=== PATIENT | female | born 1960 | race Caucasian/White ===

== ENCOUNTER 2018-05-25 10:13 | Inpatient (IN) | payer MEDICARE, OTHER ==
[~2018-05-25] VITALS: Ht 160 cm; Wt 123.2 kg
[~2018-05-25 10:13] MED LIST: ALBU90OI; ALBU90OI6; ALBU90OI6 INH; ALBU90OI61 INH; ALPR1 PO; AMIT50; ASPI81EC; Antivert25 MG PO; BACLOFEN; Bactrim Ds Tab1 EACH PO; CLIN300 PO; CLONAZEPAM; CYMBALTA; Calcium 500 MG1 EACH PO; Cipro500 MG PO; Cleocin HCl300 MG PO; DOXE2.5 PO; DOXE50 PO; DULERA 200 MCG/13 GM INH; DULO60 PO; ESTRTP PV; FLUSAL2505; FLUSAL5005 IH; FLUT.05NI; FURO40 PO; GREEN TEA; HYDACE10B; HYDACE5 PO; HYDCHL25; IBUP800; IBUP800 PO; LEVSOD100; LEVSOD100 PO; LEVSOD125 PO; LEVSOD137 PO; LEVSOD150; LEVSOD175 PO; LORA1; LORA1 PO; LORA2; Lopressor 25 mg25 MG PO; Lyrica150 MG PO; MELO7.5; MELO7.5 PO; METF500C PO; METO50 PO; METO50ER; MONT10T; MONT10T PO; MORP15ER PO; MORP30ER PO; MULVITMIND; NAPR550 PO; NITR.4SL; NITR.4SL SL; NITRSPRAY SL; Norco 5-325 Ta1 EACH PO; OMEP20ER PO; OXYACE5T PO; OXYB5; OXYB5 PO; OXYC5; OXYC5 PO; PANT40; PANT40 PO; POTA10T; POTA10T PO; POTCHL10ER PO; PREG200 PO; PREG300 PO; PREG75; PRILOSEC; PROG100 PO; PROM25 PO; QUET200; QUET25; RANI150; RXHYDACE PO; RXNAPNA550 PO; SINGULAIR; SULTRIDS PO; TOLT4; TOPI25 PO; TRAM50 PO; VALS80 PO; VENL75 PO; VENL75ER PO; WALKING BOOT; ZOLP5; ZOLP5 PO; [UNRECOGNIZED DRUG - REMARK]; [UNRECOGNIZED DRUG - REMARK]
[2018-05-25 11:39] LABS: BASOPHILS ABSOLUTE AUTO 0.09 K/mm3 (0.00-0.23); BASOPHILS PERCENT AUTO 1 % (0-2); EOSINOPHILS ABSOLUTE AUTO 0.66 K/mm3 (0.00-0.68); EOSINOPHILS PERCENT AUTO 5 % (0-6); Hematocrit 36.8 % (33.0-51.0); Hemoglobin 11.7 g/dL (11.5-16.0); IMMATURE GRAN ABSOLUTE AUTO 0.06 K/mm3 (0.00-0.10); IMMATURE GRAN PERCENT AUTO 0 % (0-1); LYMPHOCYTES ABSOLUTE AUTO 2.38 K/mm3 (0.84-5.20); LYMPHOCYTES PERCENT AUTO 17 % (21-46); MONOCYTES ABSOLUTE AUTO 1.36 K/mm3 (0.16-1.47); MONOCYTES PERCENT AUTO 10 % (4-13); Mean Corpuscular HGB 28.4 pg (26.0-34.0); Mean Corpuscular HGB Conc 31.8 g/dL (31.5-36.5); Mean Corpuscular Volume 89 fL (80-100); NEUTROPHILS ABSOLUTE AUTO 9.62 K/mm3 (1.96-9.15); NEUTROPHILS PERCENT AUTO 68 % (41-73); Platelet Count 256 K/mm3 (150-400); RDW Coefficient Variation 13.7 % (11.7-14.2); RDW Standard Deviation 45.1 fL (35.1-46.3); Red Blood Cell Count 4.12 M/mm3 (3.80-5.20); White Blood Cell Count 14.17 K/mm3 (4.00-11.30)
[2018-05-25 11:49] LABS: International Normalized Ratio 0.98; Prothrombin Time Results 10.1 Sec (9.7-11.5)
[2018-05-25 11:57] LABS: Ethanol (Alcohol), Blood, Med <3 mg/dL
[2018-05-25 12:02] LABS: Alanine Aminotransfer (ALT/SGP 20 U/L (12-78); Albumin/Globulin Ratio 0.7 (0.8-1.8); Alk Phos 151 U/L (50-136); Anion Gap 9 mmol/L (6-16); Aspartate Aminotrans (AST/SGOT 24 U/L (12-37); Bilirubin, Total 0.7 mg/dL (0.1-1.0); Blood Urea Nitrogen 41 mg/dL (8-24); Bun/Creatinine Ratio 8.5 (12.0-20.0); CO2, Blood 24 mmol/L (21-32); Calcium, Blood 8.4 mg/dL (8.5-10.1); Chloride, Blood 107 mmol/L (98-108); Creatinine, Blood 4.82 mg/dL (0.40-1.00); Globulin, Blood 4.2 g/dL (2.2-4.0); Glomerular Filtration Rate 10 (60-); Glucose, Blood 102 mg/dL (70-99); Potassium, Blood 3.9 mmol/L (3.5-5.5); Sodium, Blood 140 mmol/L (136-145); Total Protein, Blood 7.2 g/dL (6.4-8.2)
[2018-05-25 13:08] LABS: Creatine Kinase MB 2.9 ng/mL (0.0-3.6); Creatine Kinase MB Index 1.1 (0.0-4.0)
[2018-05-25 13:38] LABS: Free Thyroxine 1.46 ng/dL (0.70-1.60)
[2018-05-25 13:40] LABS: Triiodothyronine, Free 1.12 pg/mL (2.18-3.98)
[2018-05-25 14:05] LABS: U Amphetamine Screen Not Detected; U Barbituate Screen Not Detected; U Benzodiazapine Screen Not Detected; U Buprenorphine Screen Not Detected; U Cannabinoids Screen Not Detected; U Cocaine Screen Not Detected; U Methadone Screen Not Detected; U Methamphetamine Screen Not Detected; U Opiates Screen DETECTED; U Oxycodone Screen Not Detected; U Phencyclidine Screen Not Detected; U Propoxyphene Screen Not Detected
[2018-05-25] MEDS ORDERED: BACL10 PO (16:18)
[2018-05-25] MEDS ORDERED: Prozac40 MG PO (16:23)
[2018-05-25] MEDS ORDERED: Ultram50 MG PO (16:23)
[2018-05-25] MEDS ORDERED: HYDR1TAB94 PO (16:25)
[2018-05-25] MEDS ORDERED: ACYC400 PO (16:26)
[2018-05-25] MEDS ORDERED: Diclofenac Sodi50 MG PO (16:27)
[2018-05-25] MEDS ORDERED: Loratadine10 MG PO (16:31)
[2018-05-25] MEDS ORDERED: MONT10T PO (16:31)
[2018-05-25] MEDS ORDERED: HECTOROL PO (16:33)
[2018-05-25] MEDS ORDERED: BUME2 PO (16:38)
[2018-05-25] MEDS ORDERED: Doxepin HCl100 MG PO (16:43)
[2018-05-25] MEDS ORDERED: FISH OIL 1,2001 EAC4 PO (16:44)
[2018-05-25] MEDS ORDERED: VITAMIN D-32000 UNIT PO (16:45)
[2018-05-25] MEDS ORDERED: ATOR10 PO (16:45)
[2018-05-25] MEDS ORDERED: Omeprazole20 M1 PO (16:46)
[2018-05-25 19:44] LABS: Source, Urine Clean Catch
[2018-05-25 19:50] LABS: Appearance, Urine Hazy (Clear); Bilirubin, Urine Neg (Neg); Blood, Urine 2+ (Neg); Color, Urine Yellow (P-Yellow); Glucose Qualitative, Urine Neg (Neg); Ketones, Urine Neg (Neg); Leukocyte Esterase, Urine 3+ (Neg); Nitrite, Urine Neg (Neg); Protein, Urine 1+ (Neg); Specific Gravity, Urine 1.015 (1.003-1.022); Urobilinogen, Urine NORM (Normal)
[2018-05-25 20:06] LABS: Bacteria Many /hpf; Squamous Epithelial Cells Few /hpf (Few); White Blood Cells, Urine 50-100 /hpf (0-5)
[2018-05-26 05:30] LABS: BASOPHILS ABSOLUTE AUTO 0.07 K/mm3 (0.00-0.23); BASOPHILS PERCENT AUTO 1 % (0-2); EOSINOPHILS ABSOLUTE AUTO 0.48 K/mm3 (0.00-0.68); EOSINOPHILS PERCENT AUTO 5 % (0-6); Hematocrit 31.8 % (33.0-51.0); Hemoglobin 10.2 g/dL (11.5-16.0); IMMATURE GRAN ABSOLUTE AUTO 0.04 K/mm3 (0.00-0.10); IMMATURE GRAN PERCENT AUTO 0 % (0-1); LYMPHOCYTES ABSOLUTE AUTO 2.21 K/mm3 (0.84-5.20); LYMPHOCYTES PERCENT AUTO 22 % (21-46); MONOCYTES ABSOLUTE AUTO 1.19 K/mm3 (0.16-1.47); MONOCYTES PERCENT AUTO 12 % (4-13); Mean Corpuscular HGB 27.9 pg (26.0-34.0); Mean Corpuscular HGB Conc 32.1 g/dL (31.5-36.5); Mean Corpuscular Volume 87 fL (80-100); Mean Platelet Volume 11.9 fL (9.1-12.4); NEUTROPHILS ABSOLUTE AUTO 5.92 K/mm3 (1.96-9.15); NEUTROPHILS PERCENT AUTO 60 % (41-73); Platelet Count 219 K/mm3 (150-400); RDW Coefficient Variation 13.5 % (11.7-14.2); RDW Standard Deviation 43.1 fL (35.1-46.3); Red Blood Cell Count 3.65 M/mm3 (3.80-5.20); White Blood Cell Count 9.91 K/mm3 (4.00-11.30)
[2018-05-26 06:01] LABS: Bun/Creatinine Ratio 13.1 (12.0-20.0); Calcium, Blood 7.9 mg/dL (8.5-10.1); Creatinine, Blood 3.06 mg/dL (0.40-1.00); Potassium, Blood 3.8 mmol/L (3.5-5.5)
[2018-05-27 05:33] LABS: BASOPHILS ABSOLUTE AUTO 0.07 K/mm3 (0.00-0.23); BASOPHILS PERCENT AUTO 1 % (0-2); EOSINOPHILS ABSOLUTE AUTO 0.36 K/mm3 (0.00-0.68); EOSINOPHILS PERCENT AUTO 4 % (0-6); Hematocrit 33.2 % (33.0-51.0); Hemoglobin 10.4 g/dL (11.5-16.0); IMMATURE GRAN ABSOLUTE AUTO 0.03 K/mm3 (0.00-0.10); IMMATURE GRAN PERCENT AUTO 0 % (0-1); LYMPHOCYTES PERCENT AUTO 26 % (21-46); MONOCYTES ABSOLUTE AUTO 0.91 K/mm3 (0.16-1.47); MONOCYTES PERCENT AUTO 10 % (4-13); Mean Corpuscular HGB 28.1 pg (26.0-34.0); Mean Corpuscular HGB Conc 31.3 g/dL (31.5-36.5); Mean Platelet Volume 11.4 fL (9.1-12.4); NEUTROPHILS ABSOLUTE AUTO 5.29 K/mm3 (1.96-9.15); NEUTROPHILS PERCENT AUTO 59 % (41-73); Platelet Count 244 K/mm3 (150-400); RDW Coefficient Variation 13.4 % (11.7-14.2); RDW Standard Deviation 44.5 fL (35.1-46.3); White Blood Cell Count 8.96 K/mm3 (4.00-11.30)
[2018-05-27 05:44] LABS: Mean Corpuscular Volume 90 fL (80-100)
[2018-05-27 05:52] LABS: Albumin, Blood 2.4 g/dL (3.4-5.0); Anion Gap 9 mmol/L (6-16); Blood Urea Nitrogen 26 mg/dL (8-24); Bun/Creatinine Ratio 14.5 (12.0-20.0); CO2, Blood 21 mmol/L (21-32); Calcium, Blood 8.3 mg/dL (8.5-10.1); Chloride, Blood 115 mmol/L (98-108); Creatinine, Blood 1.79 mg/dL (0.40-1.00); Glomerular Filtration Rate 31 (60-); Glucose, Blood 111 mg/dL (70-99); Magnesium, Blood 1.8 mg/dL (1.6-2.4); Phosphorus, Blood 3.5 mg/dL (2.5-4.9); Sodium, Blood 145 mmol/L (136-145)
[2018-05-27] MEDS ORDERED: DOXERCALCIFER0.5 MCG PO (11:16)
== END 2018-05-27 14:21 | disposition home or self-care (01) | DRG 682 ==
LOC: ER 10:13 → MEDS 12:48 → ENPENDDIS 05-27 09:21 → MEDS 05-27 14:21
PROVIDERS: Family Medicine; Physician Assistant
DX: N17.9 Acute kidney failure, unspecified (principal); G92 Toxic encephalopathy; G91.9 Hydrocephalus, unspecified; N39.0 Urinary tract infection, site not specified; E78.5 Hyperlipidemia, unspecified; E11.40 Type 2 diabetes mellitus with diabetic neuropathy, unspecified; M79.7 Fibromyalgia; F32.9 Major depressive disorder, single episode, unspecified; F41.9 Anxiety disorder, unspecified; J45.909 Unspecified asthma, uncomplicated; E03.9 Hypothyroidism, unspecified; K21.9 Gastro-esophageal reflux disease without esophagitis; E11.22 Type 2 diabetes mellitus with diabetic chronic kidney disease; D63.1 Anemia in chronic kidney disease; E86.9 Volume depletion, unspecified; N18.3 Chronic kidney disease, stage 3 (moderate); R25.1 Tremor, unspecified; I95.9 Hypotension, unspecified; N25.81 Secondary hyperparathyroidism of renal origin; R80.9 Proteinuria, unspecified; R31.29 Other microscopic hematuria; Z66 Do not resuscitate; Z88.5 Allergy status to narcotic agent; Z88.0 Allergy status to penicillin; Z88.8 Allergy status to other drugs, medicaments and biological substances; Z91.040 Latex allergy status
CPT/HCPCS: 36415; 70450; 71046; 76770; 80048; 80053; 80069; 81001; 82140; 82550; 82553; 82947; 83735; 84439; 84443; 84481; 85025; 85610; 87077; 87086; 87186; 93005; 93010; 94640; 94760; 96360; 96361; 97110; 97161; 99285-25; G0480; G8978; G8979; J1956; J7030

== ENCOUNTER → 2018-12-07 | Outpatient (CLI) | payer MEDICARE, OTHER ==
[~2018-12-07] MED LIST changes: +ACYC400 PO; +ATOR10 PO; +BACL10 PO; +BUME2 PO; +DOXERCALCIFER0.5 MCG PO; +Diclofenac Sodi50 MG PO; +Doxepin HCl100 MG PO; +FISH OIL 1,2001 EAC4 PO; +HECTOROL PO; +HYDR1TAB94 PO; +Loratadine10 MG PO; +Omeprazole20 M1 PO; +Prozac40 MG PO; +Ultram50 MG PO; +VITAMIN D-32000 UNIT PO
[2018-12-07 17:33] LABS: Source, Urine Voided
[2018-12-07 17:54] LABS: Appearance, Urine Hazy (Clear); Bilirubin, Urine Neg (Neg); Blood, Urine Neg (Neg); Color, Urine Yellow (P-Yellow); Glucose Qualitative, Urine Neg (Neg); Ketones, Urine Neg (Neg); Leukocyte Esterase, Urine Neg (Neg); Nitrite, Urine Neg (Neg); Protein, Urine Neg (Neg); Urobilinogen, Urine NORM (Normal)
[2018-12-07 18:40] LABS: Bacteria Rare /hpf; Red Blood Cells, Urine Not Seen /hpf (0-2); Squamous Epithelial Cells Few /hpf (Few); White Blood Cells, Urine Not Seen /hpf (0-5)
[2018-12-07 18:41] LABS: Amorphous Light (0-Heavy)
== END | disposition home or self-care (01) ==
LOC: LAB SHORT 17:32 → LAB 17:32
PROVIDERS: Internal Medicine Nephrology
DX: N39.0 Urinary tract infection, site not specified (principal)
CPT/HCPCS: 81001; 87086

== ENCOUNTER 2019-03-11 13:14 | Emergency (ER) | payer MEDICARE, OTHER ==
[~2019-03-11] VITALS: Ht 160 cm; Wt 120.2 kg
[2019-03-11 14:28] LABS: BASOPHILS PERCENT AUTO 1 % (0-2); EOSINOPHILS ABSOLUTE AUTO 0.37 K/mm3 (0.00-0.68); EOSINOPHILS PERCENT AUTO 3 % (0-6); Hematocrit 40.9 % (33.0-51.0); Hemoglobin 12.8 g/dL (11.5-16.0); IMMATURE GRAN ABSOLUTE AUTO 0.08 K/mm3 (0.00-0.10); IMMATURE GRAN PERCENT AUTO 1 % (0-1); LYMPHOCYTES ABSOLUTE AUTO 2.18 K/mm3 (0.84-5.20); LYMPHOCYTES PERCENT AUTO 17 % (21-46); MONOCYTES ABSOLUTE AUTO 0.92 K/mm3 (0.16-1.47); MONOCYTES PERCENT AUTO 7 % (4-13); Mean Corpuscular HGB 28.1 pg (26.0-34.0); Mean Corpuscular HGB Conc 31.3 g/dL (31.5-36.5); Mean Corpuscular Volume 90 fL (80-100); Mean Platelet Volume 10.7 fL (9.1-12.4); NEUTROPHILS ABSOLUTE AUTO 8.97 K/mm3 (1.96-9.15); NEUTROPHILS PERCENT AUTO 71 % (41-73); Platelet Count 280 K/mm3 (150-400); RDW Coefficient Variation 14.6 % (11.7-14.2); RDW Standard Deviation 48.3 fL (35.1-46.3); Red Blood Cell Count 4.56 M/mm3 (3.80-5.20); White Blood Cell Count 12.62 K/mm3 (4.00-11.30)
[2019-03-11 14:38] LABS: International Normalized Ratio 0.98; Prothrombin Time Results 10.4 Sec (9.7-11.5)
[2019-03-11 15:00] LABS: Albumin, Blood 3.4 g/dL (3.4-5.0); Albumin/Globulin Ratio 0.8 (0.8-1.8); Bilirubin, Total 0.4 mg/dL (0.1-1.0); Bun/Creatinine Ratio 12.7 (12.0-20.0); Calcium, Blood 8.5 mg/dL (8.5-10.1); Creatinine, Blood 1.34 mg/dL (0.40-1.00); Globulin, Blood 4.1 g/dL (2.2-4.0); Potassium, Blood 3.5 mmol/L (3.5-5.5); Total Protein, Blood 7.5 g/dL (6.4-8.2)
[2019-03-11 15:43] LABS: Source, Urine Clean Catch
[2019-03-11 15:47] LABS: Appearance, Urine Clear (Clear); Bilirubin, Urine Neg (Neg); Blood, Urine Neg (Neg); Color, Urine Yellow (P-Yellow); Glucose Qualitative, Urine Neg (Neg); Ketones, Urine Neg (Neg); Leukocyte Esterase, Urine Neg (Neg); Nitrite, Urine Neg (Neg); Protein, Urine Neg (Neg); Specific Gravity, Urine 1.015 (1.003-1.022); Urobilinogen, Urine NORM (Normal)
== END 2019-03-11 18:05 | disposition home or self-care (01) ==
LOC: ER 13:14
PROVIDERS: Physician Assistant
DX: G45.9 Transient cerebral ischemic attack, unspecified (principal); E11.22 Type 2 diabetes mellitus with diabetic chronic kidney disease; N18.9 Chronic kidney disease, unspecified; F41.9 Anxiety disorder, unspecified; Z88.0 Allergy status to penicillin; Z88.5 Allergy status to narcotic agent; Z91.040 Latex allergy status; Z79.899 Other long term (current) drug therapy
CPT/HCPCS: 36415; 70450; 80053; 81003; 85025; 85610; 93005; 93010; 99285-25

== ENCOUNTER → 2020-09-17 | Outpatient (CLI) | payer MEDICARE, OTHER ==
[2020-09-17 20:22] LABS: Free Thyroxine 0.93 ng/dL (0.70-1.60); Thyroid Stimulating Hormone 27.6 uIU/mL (0.360-4.800)
== END ==
LOC: LAB SHORT 18:29 → LAB 18:29
PROVIDERS: Nurse Practitioner
DX: E03.9 Hypothyroidism, unspecified (principal); E11.9 Type 2 diabetes mellitus without complications; E55.9 Vitamin D deficiency, unspecified
CPT/HCPCS: 82306; 83036; 84439; 84443

== ENCOUNTER 2021-10-22 08:22 | Day surgery (SDC) | payer OTHER ==
[~2021-10-22] VITALS: Ht 160 cm; Wt 125.9 kg
[~2021-10-22 08:22] MED LIST changes: +ALLO100 PO; +DOXE150 PO; +Diovan40 MG PO; +EUTHYROX175 MCG PO; +METO25 PO; +MYRBETRIQ50 MG PO; +SYMBICORT 160-4.6 GM INH; +TORSE20 PO; +VENL37.5ER PO; +VICTOZA 2-0.6 MG/0.1 SC
== END 2021-10-22 10:35 | disposition home or self-care (01) ==
LOC: ORSCSDS 08:22
PROVIDERS: Surgery
PROC: 0DBP8ZX Excision of Rectum, Via Natural or Artificial Opening Endoscopic, Diagnostic (ICD-10-PCS; principal; 2021-10-22 09:30)
DX: Z12.11 Encounter for screening for malignant neoplasm of colon (principal); D12.8 Benign neoplasm of rectum; I10 Essential (primary) hypertension; E78.5 Hyperlipidemia, unspecified; J44.9 Chronic obstructive pulmonary disease, unspecified; G47.33 Obstructive sleep apnea (adult) (pediatric); K21.9 Gastro-esophageal reflux disease without esophagitis; E11.9 Type 2 diabetes mellitus without complications; Z86.73 Personal history of transient ischemic attack (TIA), and cerebral infarction without residual deficits; E03.9 Hypothyroidism, unspecified; E66.01 Morbid (severe) obesity due to excess calories; Z68.42 Body mass index [BMI] 45.0-49.9, adult; Z79.899 Other long term (current) drug therapy
CPT/HCPCS: 82947; 88305; J2704; J7120

== ENCOUNTER 2021-12-12 10:11 | Day surgery (SDC) | payer OTHER ==
[~2021-12-12 10:11] MED LIST changes: +GABA300 PO
== END 2021-12-12 11:17 | disposition home or self-care (01) ==
LOC: ORSCSDS 10:11
DX: Z12.11 Encounter for screening for malignant neoplasm of colon (principal); Z53.9 Procedure and treatment not carried out, unspecified reason
CPT/HCPCS: J7120